=== PATIENT | male | born 1990 | race Caucasian/White ===

== ENCOUNTER 2025-05-10 11:50 | Outpatient (CLI) | payer BC, SELFPAY | END 2025-05-10 11:51 | disposition home or self-care (01) | LOC: NFLDREF 05-15 12:46 | PROVIDERS: PCP Nurse Practitioner Family; Visit Provider Nurse Practitioner Family | DX: F19.11 Other psychoactive substance abuse, in remission (principal); Z13.6 Encounter for screening for cardiovascular disorders | CPT/HCPCS: 80053; 80061; 80307; 82077 ==